=== PATIENT | female | born 1960 | race Caucasian/White ===

== ENCOUNTER 2017-12-12 18:51 | Inpatient (IN) | payer OTHER ==
[~2017-12-12] VITALS: Ht 162.6 cm; Wt 67.1 kg
[2017-12-12 19:11] LABS: APPEARANCE,URINE Clear (CLEAR); BILIRUBIN,URINE Negative (NEGATIVE); COLOR,URINE Yellow (YELLOW); GLUCOSE, URINE (UA) Negative (NEGATIVE); KETONES,URINE Negative (NEGATIVE); LEUKOCYTE ESTERASE ,URINE Trace (NEGATIVE); NITRATE,URINE Negative (NEGATIVE); OCCULT BLOOD,URINE Large (NEGATIVE); PH,URINE 5.5 (5.0-8.0); PROTEIN,URINE Trace (NEGATIVE); UROBILINOGEN,URINE 0.2 mg/dL (0.2-1.0)
[2017-12-12 19:32] LABS: BACTERIA,URINE Few /HPF (None Seen); MUCUS,URINE Few LPF (None Seen); RBC,URINE >100 /HPF (0-1)
[2017-12-12] MEDS ORDERED: SODIUM CHLORIDE 0.9% 500ML 500 ML IV ONE (19:56)
[2017-12-12] MEDS ORDERED: ONDANSETRON HCL 4 MG/2 ML VIAL ONE (19:56)
[2017-12-12] MEDS ORDERED: KETOROLAC TROMETHAMINE 30MG/ML ONE (19:56)
[2017-12-12 19:59] LABS: BASOPHILS % (AUTO) 0.8 % (0.0-5.0); EOSINOPHILS % (AUTO) 0.2 % (0.0-8.0); HEMATOCRIT 37.9 % (36-48); LYMPHOCYTES % (AUTO) 23.6 % (21.0-51.0); MEAN CORPUSCULAR HEMOGLOBIN 29.1 pg (27.0-33.0); MEAN CORPUSCULAR HGB CONC 34.7 g/dL (32.0-36.0); MEAN CORPUSCULAR VOLUME 84.1 fL (79-99); MONOCYTES % (AUTO) 7.3 % (3.0-13.0); NEUTROPHILS % (AUTO) 68.1 % (40.0-77.0); PLATELET COUNT (AUTO) 265 K/uL (130-400); RED CELL DISTRIBUTION WIDTH 14.2 % (11.0-15.5)
[2017-12-12 20:09] LABS: CREATININE 0.8 mg/dL (0.5-1.5); POTASSIUM 3.2 mmol/L (3.5-5.1)
[2017-12-12 20:13] LABS: ALBUMIN 4.6 g/dL (3.5-5.0); BILIRUBIN,TOTAL 0.5 mg/dL (0.2-1.0); TOTAL PROTEIN, SERUM 8.4 g/dL (6.0-8.3)
[2017-12-13] MEDS ORDERED: MORPHINE SULFATE 2 MG/ML 1ML SYG IV PRN (00:15)
[2017-12-13] MEDS ORDERED: LIDOCAINE HCL-MPF 1% 2ML VIAL IVP PRN (00:15)
[2017-12-13] MEDS ORDERED: CEFTRIAXONE 1GM/D5W 50ML 50 ML IV SCH (00:15)
[2017-12-13] MEDS ORDERED: HYDRALAZINE HCL 20 MG/ML VIAL IV PRN (00:15)
[2017-12-13] MEDS ORDERED: POTASSIUM CHLORIDE 10% ELIXIR 20 MEQ/15 ML UDCUP PO PRN (00:15)
[2017-12-13] MEDS ORDERED: POTASSIUM CHLORIDE 20MEQ/100ML 100 ML IV PRN (00:15)
[2017-12-13] MEDS ORDERED: ACETAMINOPHEN 325 MG TAB PO PRN (00:15)
[2017-12-13] MEDS ORDERED: SODIUM CHLORIDE 0.9% 1000ML 1,000 ML IV ONE (00:46)
[2017-12-13] MEDS ORDERED: WATER FOR INJECTION,STERILE 20 ML VIAL ONE (00:46)
[2017-12-13] MEDS ORDERED: CEFTRIAXONE SODIUM 1 GM ONE (00:47)
[2017-12-13] MEDS ORDERED: ACETAMINOPHEN 325 MG TAB ONE (02:53)
[2017-12-13 06:49] LABS: EOSINOPHILS % (AUTO) 1.2 % (0.0-8.0); HEMATOCRIT 37.7 % (36-48); LYMPHOCYTES % (AUTO) 36.3 % (21.0-51.0); MEAN CORPUSCULAR HEMOGLOBIN 29.3 pg (27.0-33.0); MEAN CORPUSCULAR HGB CONC 34.6 g/dL (32.0-36.0); MEAN CORPUSCULAR VOLUME 84.6 fL (79-99); MONOCYTES % (AUTO) 6.1 % (3.0-13.0); NEUTROPHILS % (AUTO) 55.4 % (40.0-77.0); PLATELET COUNT (AUTO) 196 K/uL (130-400); RED BLOOD CELL COUNT(AUTO) 4.46 MIL/uL (4.00-5.50); RED CELL DISTRIBUTION WIDTH 14.2 % (11.0-15.5); WHITE BLOOD COUNT (AUTO) 10.1 K/uL (4.8-10.8)
[2017-12-13 06:52] LABS: CREATININE 0.7 mg/dL (0.5-1.5); POTASSIUM 3.3 mmol/L (3.5-5.1)
[2017-12-13] MEDS ORDERED: PANTOPRAZOLE SODIUM 40 MG TABLET.DR PO ONE (08:24)
[2017-12-13] MEDS: PANTOPRAZOLE SODIUM 40 MG TABLET.DR PO SCH (09:00)
[2017-12-13] MEDS ORDERED: MULT-1192 PO (09:26)
[2017-12-13] MEDS ORDERED: CHOL200074 PO (09:26)
[2017-12-13] MEDS ORDERED: CEFTRIAXONE SODIUM 1 GM IVP SCH (12:00)
[2017-12-13] MEDS ORDERED: MORPHINE SULFATE 2 MG/ML 1ML SYG ONE (16:13)
[2017-12-13] MEDS ORDERED: ONDANSETRON HCL 4 MG/2 ML VIAL ONE (16:16)
[2017-12-13 17:00] VITALS: BP 150/85
[2017-12-13] MEDS: SODIUM CHLORIDE 0.9% 1000ML 1,000 ML IV SCH (18:00)
[2017-12-13 19:29] VITALS: BP 138/85
[2017-12-13] MEDS: POTASSIUM CHLORIDE 20 MEQ ERTAB PO PRN (21:31)
[2017-12-13 23:24] VITALS: BP 133/68
[2017-12-14] VITALS (24 sets, daily range): BP systolic 121–178; BP diastolic 70–90
[2017-12-14] MEDS ORDERED: CEFTRIAXONE 1GM/D5W 50ML 50 ML IV ONE (00:40)
[2017-12-14] MEDS: POTASSIUM CHLORIDE 20 MEQ ERTAB PO PRN ×2 (00:49→02:23)
[2017-12-14] MEDS: ONDANSETRON HCL 4 MG/2 ML VIAL IVP PRN ×2 (00:51→13:09)
[2017-12-14] MEDS: PANTOPRAZOLE SODIUM 40 MG TABLET.DR PO SCH (09:00)
[2017-12-14] MEDS: SODIUM CHLORIDE 0.9% 1000ML 1,000 ML IV SCH ×2 (13:06→20:55)
[2017-12-14] MEDS ORDERED: SUCCINYLCHOLINE 200MG/10ML SYR ONE (18:24)
[2017-12-14] MEDS ORDERED: ONDANSETRON HCL 4 MG/2 ML VIAL ONE (18:24)
[2017-12-14] MEDS ORDERED: DEXAMETHASONE SOD PHOSPHATE 10MG/ML 1ML VIAL ONE (18:24)
[2017-12-14] MEDS ORDERED: LIDOCAINE PF 2% 5ML ABBOJECT ONE (18:24)
[2017-12-14] MEDS ORDERED: GLYCOPYRROLATE 0.2 MG/ML 5 ML VIAL ONE (18:24)
[2017-12-14] MEDS ORDERED: FENTANYL CITRATE PF 50 MCG/1 ML 2ML VIAL ONE ×2 (18:25→20:20)
[2017-12-14] MEDS ORDERED: MIDAZOLAM HCL 1 MG/ML 2ML VIAL ONE (18:25)
[2017-12-14] MEDS ORDERED: PROPOFOL 10 MG/ML 20ML VIAL IV ONE (18:25)
[2017-12-14] MEDS ORDERED: ROCURONIUM BROMIDE 10MG/1ML 5ML VL ONE (18:26)
[2017-12-14] MEDS ORDERED: LIDOCAINE HCL 4% LTA SOL 4 ML VIAL ONE (18:29)
[2017-12-14] MEDS ORDERED: ISOVUE-370 50ML VIAL IV ONE (19:33)
[2017-12-14] MEDS ORDERED: MEPERIDINE-PF 50 MG/ML SYG ONE (21:17)
[2017-12-15] MEDS ORDERED: HYDROCODONE/ACETAMINOPHEN 5/325 MG TAB PO PRN
[2017-12-15] MEDS ORDERED: HYDROCODONE/ACETAMINOPHEN 10/325 MG TAB PO PRN
[2017-12-15] MEDS ORDERED: KETOROLAC TROMETHAMINE 15MG/ML IV PRN
[2017-12-15] MEDS ORDERED: CEFTRIAXONE SODIUM 1 GM IVP SCH
[2017-12-15 00:08] VITALS: BP 134/71
[2017-12-15 01:08] VITALS: BP 134/79
[2017-12-15 02:08] VITALS: BP 141/75
[2017-12-15 03:10] VITALS: BP 122/62
[2017-12-15 07:46] VITALS: BP 136/74
[2017-12-15] MEDS: PANTOPRAZOLE SODIUM 40 MG TABLET.DR PO SCH (10:28)
[2017-12-15 12:23] VITALS: BP 141/74
== END 2017-12-15 15:10 | disposition home or self-care (01) | DRG 669 ==
LOC: EDH 18:51 → EDHIP 12-13 00:09 → WSH 12-13 17:00
PROVIDERS: ADMIT Family Medicine; ATTEND Family Medicine
PROC: 0TC78ZZ Extirpation of Matter from Left Ureter, Via Natural or Artificial Opening Endoscopic (ICD-10-PCS; principal; 2017-12-14 19:55)
PROC: 0T778DZ Dilation of Left Ureter with Intraluminal Device, Via Natural or Artificial Opening Endoscopic (ICD-10-PCS; 2017-12-14 19:55)
DX: N13.2 Hydronephrosis with renal and ureteral calculous obstruction (principal); D72.829 Elevated white blood cell count, unspecified; E87.6 Hypokalemia; Z87.442 Personal history of urinary calculi; Z90.710 Acquired absence of both cervix and uterus; Z90.49 Acquired absence of other specified parts of digestive tract
CPT/HCPCS: 36415; 74176; 76000; 76770; 80048; 80053; 81001; 82360; 84132; 85025; 88300; 93005; A4218; A4354; C1758; C1769; C1894; C2617; J0330; J0696; J1100; J1885; J2001; J2175; J2250; J2405; J2704; J3010; J3490; J7030; J7040; Q9967

== ENCOUNTER → 2023-10-23 | Outpatient (CLI) | payer OTHER ==
[~2023-10-23] MED LIST: CHOL200074 PO; MULT-1192 PO
[2023-10-23 15:41] LABS: BILIRUBIN,TOTAL 0.6 mg/dL (0.2-1.0); CREATININE 1.1 mg/dL (0.5-1.5); POTASSIUM 4.2 mmol/L (3.5-5.1); TOTAL PROTEIN, SERUM 8.1 g/dL (6.0-8.3)
== END | disposition home or self-care (01) ==
LOC: LAB 14:33
PROVIDERS: ATTEND Student in an Organized Health Care Education/Training Program
DX: R07.9 Chest pain, unspecified (principal)
CPT/HCPCS: 36415; 80053

== ENCOUNTER → 2023-11-03 | Outpatient (CLI) | payer OTHER ==
[~2023-11-03] MED LIST changes: +IOHEXOL 350 MG/ML 100ML INFUS..BTL IV ONE; +METOPROLOL TARTRATE 1 MG/ML 5ML VIAL IV ONE
== END | disposition home or self-care (01) ==
LOC: RAH 09:55
PROVIDERS: ATTEND Student in an Organized Health Care Education/Training Program
DX: M47.815 Spondylosis without myelopathy or radiculopathy, thoracolumbar region (principal); R07.9 Chest pain, unspecified
CPT/HCPCS: 75574; J3490 ×2; Q9967

== ENCOUNTER 2024-08-02 16:27 | Emergency (ER) | payer OTHER ==
[~2024-08-02] VITALS: Ht 162.6 cm; Wt 64.9 kg
[~2024-08-02 16:27] MED LIST changes: +AMLO-257 PO; +ATOR40TA69 PO; -IOHEXOL 350 MG/ML 100ML INFUS..BTL IV ONE; +LOSA25TA41 PO; +METO-408 PO; -METOPROLOL TARTRATE 1 MG/ML 5ML VIAL IV ONE; +MONT-39 PO; +PANT40TA54 PO; +TAMS-1 PO
[2024-08-02 17:39] LABS: RAPID GROUP A STREP negative (NEGATIVE)
[2024-08-02] MEDS: ZOSYN 3.375GM +NS 50ML IVPB SCH (17:40)
[2024-08-02] MEDS: ketOROlac 30MG VIAL (30MG/ML) IVP ONE (17:40)
[2024-08-02] MEDS: 0.9%NACL 1000ML 1,000 ML IV ONE (17:40)
[2024-08-02] MEDS: ondanSETRON 4MG INJ IVP ONE (17:40)
[2024-08-02 17:41] LABS: BASOPHILS # (AUTO) 0.03 K/uL (0.00-0.20); BASOPHILS % (AUTO) 0.4 % (0.0-5.0); EOSINOPHILS % (AUTO) 2.7 % (0.0-8.0); HEMATOCRIT 37.2 % (36-48); IMMATURE GRANULOCYTE ABSOLUTE 0.02 K/uL (0-1); LYMPHOCYTES # (AUTO) 0.6 K/uL (1.0-4.8); LYMPHOCYTES % (AUTO) 7.9 % (21.0-51.0); MEAN CORPUSCULAR HEMOGLOBIN 29.7 pg (27.0-33.0); MEAN CORPUSCULAR HGB CONC 33.1 g/dL (32.0-36.0); MEAN CORPUSCULAR VOLUME 89.9 fL (79-99); MONOCYTES # (AUTO) 0.6 K/uL (0.1-1.0); MONOCYTES % (AUTO) 8.2 % (3.0-13.0); NEUTROPHILS # (AUTO) 5.9 K/uL (1.8-7.7); NEUTROPHILS % (AUTO) 80.5 % (40.0-77.0); PLATELET COUNT (AUTO) 94 K/uL (130-400); RED BLOOD CELL COUNT(AUTO) 4.14 MIL/uL (4.00-5.50); WHITE BLOOD COUNT (AUTO) 7.3 K/uL (4.8-10.8)
[2024-08-02 17:47] LABS: CREATININE 1.2 mg/dL (0.5-1.0); POTASSIUM 3.8 mmol/L (3.5-5.1)
[2024-08-02 17:49] LABS: INFLUENZA TYPE A Negative For Type A (NEGATIVE); INFLUENZA TYPE B Negative For Type B (NEGATIVE)
[2024-08-02 17:51] LABS: COVID19 (SARS ANTIGEN RAPID) POSITIVE FOR SARS AG (NEGATIVE)
[2024-08-02 19:55] LABS: APPEARANCE,URINE CLOUDY (CLEAR); BILIRUBIN,URINE NEGATIVE (NEGATIVE); COLOR,URINE YELLOW (YELLOW); GLUCOSE, URINE (UA) NEGATIVE (NEGATIVE); KETONES,URINE NEGATIVE (NEGATIVE); LEUKOCYTE ESTERASE ,URINE 500 Leu/uL (NEGATIVE); NITRATE,URINE NEGATIVE (NEGATIVE); OCCULT BLOOD,URINE LARGE (NEGATIVE); PROTEIN,URINE 200 mg/dL (NEGATIVE); UROBILINOGEN,URINE 0.2 mg/dL (0.2-1.0)
[2024-08-02 19:58] LABS: ADD UA MICROSCOPIC YES
[2024-08-02 20:00] LABS: BACTERIA,URINE None Seen /HPF (None Seen); RBC,URINE TNTC /HPF (0-1); SQUAMOUS EPITHELIAL CELL,UR Rare /HPF (0-2); WBC,URINE 51-100 /HPF (0-1)
[2024-08-02] MEDS ORDERED: ONDA-243 PO (20:10)
[2024-08-02 20:11] VITALS: BP 119/63; PULSE 85; RESP 20; TEMP 98.8; O2SAT 98
== END 2024-08-02 20:55 | disposition home or self-care (01) ==
LOC: EDH 16:27
DX: U07.1 COVID-19 (principal); N30.00 Acute cystitis without hematuria; R11.2 Nausea with vomiting, unspecified; K21.9 Gastro-esophageal reflux disease without esophagitis; I10 Essential (primary) hypertension; Z79.899 Other long term (current) drug therapy; Z90.49 Acquired absence of other specified parts of digestive tract; Z90.710 Acquired absence of both cervix and uterus
CPT/HCPCS: 99284; 96365; 96375; 87426; 80048; 85025; 87040; 87086; 87880; 87804 ×2; 83605; 81001; 36415; J7030; J2405; J1885; J2543

== ENCOUNTER → 2024-09-18 | Outpatient (CLI) | payer OTHER ==
[~2024-09-18] MED LIST changes: +NITR100C PO; +OMEG1CAP45 PO; +probiotic PO
--- NOTE | 2024-09-18 13:24 | HMCIMG ---
ABD 1VW HISTORY: Ureter stone COMPARISON: None FINDINGS: A frontal projection of the abdomen was obtained. A nonspecific bowel gas pattern is seen. Fecal material is seen in the colon. Postcholecystectomy changes are seen. Evaluation for renal stone is limited due to extensive fecal material . Degenerative changes of the thoracolumbar spine are noted. IMPRESSION: 1. A nonspecific bowel gas pattern is seen. Evaluation for renal stone is limited due to extensive fecal material .
--- NOTE | 2024-09-18 16:53 | HMCIMG ---
US RENAL SONOGRAM HISTORY: Ureter stone COMPARISON: 08/22/2024 TECHNIQUE: Renal and bladder ultrasound study was performed. FINDINGS: The right kidney measures 12.4 x 4.6 x 5.1 cm. The left kidney measures 12 x 5.8 x 5.3 cm. Bilateral renal stones are seen with the largest on the right measuring 10 x 6 mm the left measuring 11 x 11 mm. No evidence of hydronephrosis is seen of either kidney. Both kidneys are seen. Bladder is poorly distended. IMPRESSION: 1. No hydronephrosis is seen. Bilateral renal stones.
== END | disposition home or self-care (01) ==
LOC: RAH 11:00
PROVIDERS: ATTEND Urology
DX: N20.2 Calculus of kidney with calculus of ureter (principal); N32.89 Other specified disorders of bladder; Z90.49 Acquired absence of other specified parts of digestive tract; M47.815 Spondylosis without myelopathy or radiculopathy, thoracolumbar region
CPT/HCPCS: 74018; 76770